=== PATIENT | female | born 1995 | race Caucasian/White ===

== ENCOUNTER 2019-03-30 02:02 | Emergency (ER) | payer MEDICAID ==
[~2019-03-30] VITALS: Ht 170.2 cm; Wt 81.7 kg
[2019-03-30] MEDS ORDERED: ZOLOFT50 MG PO (02:18)
[2019-03-30] MEDS ORDERED: BENADRYL25 MG PO (02:18)
[2019-03-30] MEDS ORDERED: PROAIR HFA8.5 GM INH (02:18)
[2019-03-30] MEDS ORDERED: PRENA1 PEARL S1 EACH PO (02:19)
[2019-03-30 02:30] VITALS: BP 130/84
== END 2019-03-30 02:30 | disposition left against medical advice (07) ==
LOC: M.ERS 02:02
DX: O26.892 Other specified pregnancy related conditions, second trimester (principal); R10.9 Unspecified abdominal pain; Z88.0 Allergy status to penicillin; Z88.8 Allergy status to other drugs, medicaments and biological substances; Z91.018 Allergy to other foods; Z3A.21 21 weeks gestation of pregnancy

== ENCOUNTER 2019-08-27 14:29 | Emergency (ER) | payer MEDICAID ==
[~2019-08-27] VITALS: Ht 170.2 cm; Wt 89.8 kg
[~2019-08-27 14:29] MED LIST: BENADRYL25 MG PO; PRENA1 PEARL S1 EACH PO; PROAIR HFA8.5 GM INH; ZOLOFT50 MG PO
[2019-08-27 15:19] VITALS: BP 110/70
== END 2019-08-27 15:20 | disposition home or self-care (01) ==
LOC: M.ERS 14:29
DX: F41.0 Panic disorder [episodic paroxysmal anxiety] (principal); J45.909 Unspecified asthma, uncomplicated; F31.9 Bipolar disorder, unspecified; Z88.0 Allergy status to penicillin; Z88.8 Allergy status to other drugs, medicaments and biological substances; Z91.013 Allergy to seafood; Z91.018 Allergy to other foods